=== PATIENT | male | born 1950 | race Caucasian/White ===

== ENCOUNTER → 2016-05-09 | Outpatient (CLI) | payer MEDICARE, BC, OTHER ==
[~2016-05-09] MED LIST: Iopamidol 755 MG/ML 500 ML Multipack Bottle IVPUSH STA
--- NOTE | 2016-05-09 13:47 | CT ---
CT of the abdomen and pelvis with contrast. HISTORY: Disease of the liver TECHNIQUE: Axial CT images were obtained of the abdomen and pelvis following administration of 100 m L of Isovue-[id number] in the right antecubital fossa without complication. Coronal and sagittal reconstruc tions obtained. FINDINGS: The lung bases are clear, no pleural effusion. There is calcified granuloma within the right middle lobe. The liver has a mildly nodular contour. The previously demonstrated hypodensity is not well characte rized on today's examination likely represents focal fatty infiltration. Otherwise no focal hepatic mass identified. Cholecystectomy clips are present. Splenic granulomata are noted. The adrenal gland s and pancreas appear normal. There is a lap band noted. The kidneys enhance and function symmetrically without evidence of obstructive uropathy. Renal corti yana cysts are present. There is a bifurcating endoluminal stent graft within the distal aorta. The large and small bowel are normal in caliber without evidence of obstruction. The appendix appear s normal. No pericolonic inflammation. The urinary bladder is normal. The prostate is mildly promine nt. No suspicious osseous abnormalities demonstrated. IMPRESSION: 1. The previously demonstrated hepatic hypodensity likely represents focal fatty infiltration. 2. The liver is otherwise nodular in contour, correlate clinically for cirrhosis. 3. Stable renal cysts. 4. Tiny fat-containing umbilical and supraumbilical hernias.
== END | disposition home or self-care (01) ==
LOC: MW.DI 10:16
PROVIDERS: ATTEND Surgery
DX: K76.89 Other specified diseases of liver (principal); Q61.02 Congenital multiple renal cysts; K42.9 Umbilical hernia without obstruction or gangrene
CPT/HCPCS: 74177; Q9967

== ENCOUNTER → 2016-05-19 | Outpatient (CLI) | payer MEDICARE, BC | LOC: MW.CHGS 08:00 | PROVIDERS: ATTEND Surgery | DX: K43.2 Incisional hernia without obstruction or gangrene (principal); K76.89 Other specified diseases of liver | CPT/HCPCS: G0463 ==

== ENCOUNTER 2016-06-09 09:37 | Emergency (ER) | payer MEDICARE, BC ==
[2016-06-09 10:00] VITALS: BP 174/86
[2016-06-09] MEDS ORDERED: Proparacaine 0.5% Ophth Soln 15 ML Bottle EYELF ONE (10:05)
--- NOTE | 2016-06-09 10:24 | EDM.PDOC ---
ED HPI EYE COMPLAINT - General Chief Complaint: Eye Problems Stated Complaint: SOMETHING IN LT EYE Time Seen by Provider: 06/09/16 10:08 Source: Reports: Patient History Limitations: Reports: No limitations - History of Present Illness INITIAL COMMENTS - FREE TEXT/NARRATIVE: History of present illness: [] Patient awoke with his left eye matted shut this morning he cleaned his eye and then started reading and felt like there was a foreign body under his upper eyelid. He states his vision is blurry it is unclear to to the pain and foreign body sensation. He denies any trauma or injury not had any recent illnesses Review of systems: As per history of present illness and below otherwise all systems reviewed and negative. Past medical history: As per history of present illness and as reviewed below otherwise noncontributory. Surgical history: As per history of present illness and as reviewed below otherwise noncontributory. Social history: No reported history of drug or alcohol abuse. Family history: As per history of present illness and as reviewed below otherwise noncontributory. Physical exam: General: Well developed, well nourished in NAD HEENT: Atraumatic, normocephalic, pupils reactive, negative for conjunctival pallor or scleral icterus, mucous membranes moist, throat clear, neck supple, nontender, trachea midline. Lungs: Clear to auscultation, breath sounds equal bilaterally, chest nontender. Heart: S1S2, regular, negative for clicks, rubs, or JVD. Abdomen: Soft, nondistended, nontender. Negative for masses or hepatosplenomegaly. Negative for costovertebral tenderness. Pelvis: Stable nontender. Genitourinary: Deferred. Rectal: Deferred. Extremities: Atraumatic, negative for cords or calf pain. Neurovascular unremarkable. Neuro: Awake, alert, oriented. Cranial nerves II through XII unremarkable. Cerebellum unremarkable. Motor and sensory unremarkable throughout. Exam nonfocal. Diagnostics: [] Proparacaine used to anesthetize the left eye and stained for seen and examined with blue light no corneal abrasions noted there are also no foreign bodies noted Therapeutics: [] Impression: [] Conjunctivitis left eye Plan: [] Erythromycin ointment followup with chief architect in Definitive disposition and diagnosis as appropriate pending reevaluation and review of above. - Related Data Allergies/ADRs: Allergies No Known Allergies Allergy (Verified 12/01/14 15:56) Home Meds: Ambulatory Orders Medication Instructions Recorded Confirmed Aspirin [Halfprin] 1 tab PO DAILY 12/01/14 08/16/15 Multivitamin [Multi-Vitamin Daily] 1 tab PO DAILY 12/01/14 08/16/15 Omeprazole [Prilosec] 1 tab PO BEDTIME 12/01/14 08/16/15 amLODIPine Besylate [Amlodipine 0.5 tab PO BEDTIME 12/01/14 08/16/15 Besylate] Albuterol [Proventil HFA] 1 - 2 puff INH ASDIRECTED PRN 12/05/14 08/16/15 Losartan Potassium 1 tab PO BEDTIME 07/16/15 08/16/15 Erythromycin Base [Erythromycin 1 applic OP Q4H #1 tube 06/09/16 0.5% Ophth Oint] Past Medical History Other HEENT History: Hears best on LEFT Cardiovascular History: Reports: Hypertension Respiratory History: Reports: Bronchitis, recurrent, COPD, Sleep apnea Other Respiratory History: 50 yr history of smoking QUIT 01/2014 (have inhaler do not need to use often at all) Gastrointestinal History: Reports: Hepatitis Other Gastrointestinal History: Hepatitis 'C" recently finished medicine ledipasvir 90/SOFOS Buvir 400 mg, "liver bx looks good" no signs of hepatitis C. will be tested again in July. 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 Genitourinary History: Reports: None Musculoskeletal History: Reports: Arthritis, Back pain, chronic Other Musculoskeletal History: Hx: Fractures - knuckles, Nose, Right Knee '70s , Degenerative Disk disease to Low Back Neurological History: Reports: None Psychiatric History: Reports: Depression Other Psychiatric History: History - for 4 yrs depressed discovered side effect from medication Endocrine/Metabolic History: Reports: Obesity/BMI 30+ Hematologic History: Reports: None Immunologic History: Reports: None Oncologic (Cancer) History: Reports: None Dermatologic History: Reports: None - Infectious Disease History Infectious Disease History: Reports: Chicken pox, Hepatitis C, Measles, Mumps - Past Surgical History Cardiovascular Surgical History: Reports: AAA repair Other Cardiovascular Surgeries/Procedures: AAA Repair Greig 10/18/2014, with stent GI Surgical History: Reports: Cholecystectomy, Colonoscopy, EGD, Siddharth fundoplication Other GI Surgeries/Procedures: Open Cholecystectomy many years ago Social & Family History - Tobacco Use Smoking Status *Q: Never Smoker Years of Tobacco use: 50 Used Tobacco, but Quit: Yes Month Tobacco Last Used: 01/2015 Second Hand Smoke Exposure: No - Caffeine Use Caffeine Use: Reports: Soda - Recreational Drug Use Recreational Drug Use: No Drug Use in Last 12 Months: No ED ROS GENERAL - Review of Systems Review Of Systems: See Below (See history of present illness) ED EXAM GENERAL W FULL EYE - Physical Exam Exam: See Below (See history of present illness) Course - Vital Signs Last Recorded V/S: Last Vital Signs Temp 36.2 C 06/09/16 09:59 Pulse 56 L 06/09/16 09:59 Resp 18 06/09/16 09:59 BP 174/86 H 06/09/16 09:59 Pulse Ox 97 06/09/16 09:59 - Orders/Labs/Meds Meds: Medications Discontinued Medications Generic Name Dose Route Start Last Admin Trade Name Freq PRN Reason Stop Dose Admin Proparacaine HCl 1 ml 06/09/16 10:05 Proparacaine 0.5% Ophth Soln EYELF 06/09/16 10:06 ONETIME ONE Departure - Departure Time of Disposition: 10:21 Disposition: Home, Self-Care 01 Condition: good Clinical Impression: Conjunctivitis Qualifiers: Conjunctivitis type: unspecified Laterality: left Qualified Code(s): H10.9 - Unspecified conjunctivitis Prescriptions: Erythromycin Base [Erythromycin 0.5% Ophth Oint] 1 applic OP Q4H #1 tube Forms: ED Department Discharge Additional Instructions: The following information is given to patients seen in the emergency department who are being discharged to home. This information is to outline your options for follow-up care. We provide all patients seen in our emergency department with a follow-up referral. The need for follow-up, as well as the timing and circumstances, are variable depending upon the specifics of your emergency department visit. If you don't have a primary care physician on staff, we will provide you with a referral. We always advise you to contact your personal physician following an emergency department visit to inform them of the circumstance of the visit and for follow-up with them and/or the need for any referrals to a consulting specialist. The emergency department will also refer you to a specialist when appropriate. This referral assures that you have the opportunity for follow-up care with a specialist. All of these measure are taken in an effort to provide you with optimal care, which includes your follow-up. Under all circumstances we always encourage you to contact your private physician who remains a resource for coordinating your care. When calling for follow-up care, please make the office aware that this follow-up is from your recent emergency room visit. If for any reason you are refused follow-up, please contact the [facility] Emergency Department at and asked to speak to the emergency department charge nurse. Erythromycin ointment is to [address] [address]
== END 2016-06-09 10:34 | disposition home or self-care (01) ==
LOC: MW.ED 09:37
DX: H10.9 Unspecified conjunctivitis (principal); I10 Essential (primary) hypertension; J44.9 Chronic obstructive pulmonary disease, unspecified; F32.9 Major depressive disorder, single episode, unspecified; E66.09 Other obesity due to excess calories; Z79.82 Long term (current) use of aspirin; Z90.49 Acquired absence of other specified parts of digestive tract; Z87.891 Personal history of nicotine dependence
CPT/HCPCS: 99283

== ENCOUNTER 2018-04-04 11:18 | Emergency (ER) | payer MEDICARE, BC, OTHER ==
--- NOTE | 2018-04-04 12:13 | EDM.PDOC ---
ED HPI GENERAL MEDICAL PROBLEM - General Chief Complaint: General Stated Complaint: CANCER Time Seen by Provider: 04/04/18 11:23 Source of Information: Reports: Patient History Limitations: Reports: No Limitations - History of Present Illness INITIAL COMMENTS - FREE TEXT/NARRATIVE: History of present illness: []Patient has a history of cancer and receives paracentesis on a regular basis. He is scheduled to have the procedure done here tomorrow but states he is more short of breath today so he came in to have drainage done early. Review of systems: As per history of present illness and below otherwise all systems reviewed and negative. Past medical history: As per history of present illness and as reviewed below otherwise noncontributory. Surgical history: As per history of present illness and as reviewed below otherwise noncontributory. Social history: No reported history of drug or alcohol abuse. Family history: As per history of present illness and as reviewed below otherwise noncontributory. Physical exam: General: Well developed, well nourished in NAD HEENT: Atraumatic, normocephalic, pupils reactive, negative for conjunctival pallor or scleral icterus, mucous membranes moist, throat clear, neck supple, nontender, trachea midline. Lungs: Clear to auscultation, breath sounds equal bilaterally, chest nontender. Heart: S1S2, regular, negative for clicks, rubs, or JVD. Abdomen: NABS, Soft, distended, nontender. Negative for masses or hepatosplenomegaly. Negative for costovertebral tenderness. Pelvis: Stable nontender. Genitourinary: Deferred. Rectal: Deferred. Extremities: Atraumatic, negative for cords or calf pain. Neurovascular unremarkable. Neuro: Awake, alert, oriented. Cranial nerves II through XII unremarkable. Cerebellum unremarkable. Motor and sensory unremarkable throughout. Exam nonfocal. Skin:warm and dry Diagnostics: Patient sats 99-100% on room air, CBC, chemistry, PTT, INR Therapeutics: None chest x-ray ED Course: Unremarkable Impression: Ascites Prescriptions: None Plan: reTurn tomorrow for paracentesis procedure as previously scheduled Definitive disposition and diagnosis as appropriate pending reevaluation and review of above. - Related Data Allergies Allergy/AdvReac Type Severity Reaction Status Date / Time No Known Allergies Allergy Verified 04/04/18 11:35 Home Meds: Home Meds Multivitamin [Multi-Vitamin Daily] 1 tab PO DAILY 12/01/14 [History] Omeprazole [Prilosec] 20 mg PO BEDTIME 12/01/14 [History] Albuterol [Proventil HFA] 1 - 2 puff INH ASDIRECTED PRN 12/05/14 [History] Ferrous Sulfate [Ferosul] 325 mg PO BID 04/04/18 [History] Furosemide 40 mg PO DAILY 04/04/18 [History] Lactulose [Enulose] 10 gram PO TID 04/04/18 [History] Rifaximin [Xifaxan] 200 mg PO DAILY 04/04/18 [History] atorvaSTATin [Lipitor] 04/04/18 [History] Past Medical History - Past Health History Medical/Surgical History: Denies Medical/Surgical History Other HEENT History: Hears best on LEFT Cardiovascular History: Reports: Hypertension Respiratory History: Reports: Bronchitis, Recurrent, COPD, Sleep Apnea Other Respiratory History: 50 yr history of smoking QUIT 01/2014 (have inhaler do not need to use often at all) Gastrointestinal History: Reports: Hepatitis Other Gastrointestinal History: Hepatitis 'C" recently finished medicine ledipasvir 90/SOFOS Buvir 400 mg, "liver bx looks good" no signs of hepatitis C. will be tested again in July. 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 Genitourinary History: Reports: None Musculoskeletal History: Reports: Arthritis, Back Pain, Chronic Other Musculoskeletal History: Hx: Fractures - knuckles, Nose, Right Knee '70 , Degenerative Disk disease to Low Back Neurological History: Reports: None Psychiatric History: Reports: Depression Other Psychiatric History: History - for 4 yrs depressed discovered side effect from medication Endocrine/Metabolic History: Reports: Obesity/BMI 30+ Hematologic History: Reports: None Immunologic History: Reports: None Oncologic (Cancer) History: Reports: None Dermatologic History: Reports: None - Infectious Disease History Infectious Disease History: Reports: Chicken Pox, Measles, Mumps - Past Surgical History Cardiovascular Surgical History: Reports: AAA Repair GI Surgical History: Reports: Cholecystectomy, Colonoscopy, EGD, Siddharth Fundoplication Social & Family History - Family History Family Medical History: Noncontributory - Tobacco Use Smoking Status *Q: Former Smoker Used Tobacco, but Quit: Yes Month/Year Tobacco Last Used: 4 years - Caffeine Use Caffeine Use: Reports: Soda - Recreational Drug Use Recreational Drug Use: No ED ROS GENERAL - Review of Systems Review Of Systems: ROS reveals no pertinent complaints other than HPI. ED EXAM, GENERAL - Physical Exam Exam: See Below (See history of present illness) Course - Vital Signs Last Recorded V/S: Last Vital Signs Temp 97.9 F 04/04/18 11:32 Pulse 58 L 04/04/18 12:12 Resp 24 H 04/04/18 12:12 BP 123/73 04/04/18 12:12 Pulse Ox 98 04/04/18 12:12 - Orders/Labs/Meds Orders: Active Orders 24 hr Category Date Time Status Chest 2V [CR] Stat Exams 04/04/18 11:48 Taken COMPREHENSIVE METABOLIC PN,CMP [CHEM] Stat Lab 04/04/18 11:58 Received Labs: Laboratory Tests 04/04/18 04/04/18 Range/Units 11:58 11:58 WBC 10.32 (4.0-11.0) K/uL RBC 2.97 L (4.50-5.90) M/uL Hgb 9.6 L (13.0-17.0) g/dL Hct 28.3 L (38.0-50.0) % MCV 95.3 (80.0-98.0) fL MCH 32.3 H (27.0-32.0) pg MCHC 33.9 (31.0-37.0) g/dL RDW Std Deviation 64.6 H (28.0-62.0) fl RDW Coeff of Cinthia 19 H (11.0-15.0) % Plt Count 144 L (150-400) K/uL MPV 9.70 (7.40-12.00) fL Neut % (Auto) 77.5 (48.0-80.0) % Lymph % (Auto) 11.5 L (16.0-40.0) % Redwood % (Auto) 7.8 (0.0-15.0) % Eos % (Auto) 2.0 (0.0-7.0) % Baso % (Auto) 1.2 (0.0-1.5) % Neut # (Auto) 8.0 H (1.4-5.7) K/uL Lymph # (Auto) 1.2 (0.6-2.4) K/uL Redwood # (Auto) 0.8 (0.0-0.8) K/uL Eos # (Auto) 0.2 (0.0-0.7) K/uL Baso # (Auto) 0.1 (0.0-0.1) K/uL Nucleated RBC % 0.0 /100WBC Nucleated RBCs # 0 K/uL INR 1.19 APTT 25.6 (18.6-31.3) SEC Departure - Departure Time of Disposition: 12:27 Disposition: Home, Self-Care 01 Condition: Good Clinical Impression: Ascites Qualifiers: Ascites type: other type Qualified Code(s): R18.8 - Other ascites - Discharge Information *PRESCRIPTION DRUG MONITORING PROGRAM REVIEWED*: No *COPY OF PRESCRIPTION DRUG MONITORING REPORT IN PATIENT ANGEL LUIS: No Referrals: PCP,Unknown [Primary Care Provider] - Forms: ED Department Discharge Additional Instructions: The following information is given to patients seen in the emergency department who are being discharged to home. This information is to outline your options for follow-up care. We provide all patients seen in our emergency department with a follow-up referral. The need for follow-up, as well as the timing and circumstances, are variable depending upon the specifics of your emergency department visit. If you don't have a primary care physician on staff, we will provide you with a referral. We always advise you to contact your personal physician following an emergency department visit to inform them of the circumstance of the visit and for follow-up with them and/or the need for any referrals to a consulting specialist. The emergency department will also refer you to a specialist when appropriate. This referral assures that you have the opportunity for follow-up care with a specialist. All of these measure are taken in an effort to provide you with optimal care, which includes your follow-up. Under all circumstances we always encourage you to contact your private physician who remains a resource for coordinating your care. When calling for follow-up care, please make the office aware that this follow-up is from your recent emergency room visit. If for any reason you are refused follow-up, please contact the [facility] Emergency Department at and asked to speak to the emergency department charge nurse. re-turn tomorrow for your procedure as previously scheduled [facility] [address] [place] [id number] - My Orders Last 24 Hours: My Active Orders 04/04/18 11:48 Chest 2V [CR] Stat 04/04/18 11:58 COMPREHENSIVE METABOLIC PN,CMP [CHEM] Stat - Assessment/Plan Last 24 Hours: My Active Orders 04/04/18 11:48 Chest 2V [CR] Stat 04/04/18 11:58 COMPREHENSIVE METABOLIC PN,CMP [CHEM] Stat
--- NOTE | 2018-04-04 12:49 | CR ---
INDICATION: Ascites. Shortness of breath. TECHNIQUE: PA and lateral chest x-ray. COMPARISON: Chest x-ray 03/20/2018. FINDINGS: Changes of previous granulomas disease in the chest including calcified granulomas in both lungs and calcified lymph nodes in the chest greatest in the left infrahilar region. Mild nodular interstitial infiltrates/prominence throughout both lungs greatest in the lung bases likely fibrotic. Small right pleural effusion is more prominent or new. Heart is upper limits of normal. Distal aortic arch is mildly ectatic. Chest otherwise unremarkable. Dictated by Wiliam Gagnon MD @ Apr 04 2018 12:46PM Signed by Dr. Wiliam Gagnon @ Apr 04 2018 12:48PM
[2018-04-04 15:23] VITALS: BP 159/137
== END 2018-04-04 13:35 | disposition home or self-care (01) ==
LOC: MW.ED 11:18
DX: R18.8 Other ascites (principal); I10 Essential (primary) hypertension; J44.9 Chronic obstructive pulmonary disease, unspecified; E66.9 Obesity, unspecified; Z87.891 Personal history of nicotine dependence
CPT/HCPCS: 36415; 71046; 71046-26; 80053; 85025; 85610; 85730; 99282; 99284